=== PATIENT | male | born 1955 | race Native Hawaiian/Other Pacific Islander ===

== ENCOUNTER 2016-07-17 15:39 | Observation (INO) | payer OTHER ==
[~2016-07-17] VITALS: Ht 182.9 cm; Wt 93.6 kg
[~2016-07-17 15:39] MED LIST: AMLO2.5T PO; GLIP10TA55 PO; HUMULIN N1 ML SC; HUMULIN R1 M1 SC; LISI20TA11 PO; TAMS0.4C PO; ZESTRIL30 MG PO
[2016-07-17 16:00] VITALS: BP 122/60; TEMP 98.3
[2016-07-17 17:10] LABS: PLATELET COUNT 268 K/uL (142-355)
[2016-07-17 17:24] LABS: SODIUM 128 mmol/L (136-145)
--- NOTE | 2016-07-17 17:30 | NUR ---
NOTIFIED DR HAMMER OF CRITICAL LAB BLOOD GLUCOSE 444. NO NEW ORDERS GIVEN.
[2016-07-17 17:58] VITALS: BP 122/60; TEMP 98.3; Ht 182.9 cm; Wt 93.6 kg
[2016-07-17] MEDS ORDERED: LEVEMIR SC (19:07)
[2016-07-17 20:00] VITALS: BP 174/72; TEMP 97.5
[2016-07-18 00:19] VITALS: BP 133/76; TEMP 97.9
[2016-07-18 04:00] VITALS: BP 157/51; TEMP 98.8
[2016-07-18 08:00] VITALS: BP 166/73; TEMP 98
[2016-07-18 12:11] VITALS: BP 142/66; TEMP 98.5
[2016-07-18 16:00] VITALS: BP 147/66; TEMP 98.3
== END 2016-07-18 17:52 | disposition home or self-care (01) ==
LOC: MED/SURG 15:39
PROVIDERS: ADMIT Family Medicine
DX: D69.42 Congenital and hereditary thrombocytopenia purpura (principal); I10 Essential (primary) hypertension; E13.9 Other specified diabetes mellitus without complications; R53.83 Other fatigue; M25.551 Pain in right hip; E86.0 Dehydration
CPT/HCPCS: 36415; 36591; 80053; 81000; 82948; 85027; 87077; 87086; 87088; 87186; 96360; 96361; 96365; 96372; 99220; G0378; G0379; J1815

== ENCOUNTER 2017-09-21 13:59 | Outpatient (CLI) | payer OTHER ==
[~2017-09-21 13:59] MED LIST changes: +LEVEMIR SC
== END 2017-09-21 21:17 | disposition home or self-care (01) ==
LOC: MRI 13:59
DX: M54.2 Cervicalgia (principal)

== ENCOUNTER 2019-08-18 16:42 | Outpatient (CLI) | payer OTHER ==
[2019-08-18 17:19] LABS: SODIUM 138 mmol/L (136-145)
== END 2019-08-18 21:54 | disposition home or self-care (01) ==
LOC: RAD 16:42
PROVIDERS: Nurse Practitioner Family
DX: R07.9 Chest pain, unspecified (principal)
CPT/HCPCS: 36415; 80053; 82550; 82553; 84484

== ENCOUNTER 2019-11-21 18:30 | Inpatient (IN) | payer OTHER ==
[~2019-11-21] VITALS: Ht 182.9 cm; Wt 90.0 kg
[2019-11-21 20:34] LABS: PLATELET COUNT 256 K/uL (142-355)
[2019-11-21 20:49] LABS: POTASSIUM 3.9 mmol/L (3.6-5.2); SODIUM 134 mmol/L (136-145)
[2019-11-22] VITALS: BP 197/82; TEMP 98.1
[2019-11-22 04:00] VITALS: BP 182/78; TEMP 98.6
[2019-11-22] MEDS ORDERED: KETOROLAC10 MG PO (05:56)
[2019-11-22] MEDS ORDERED: GLIP10TA55 PO (05:57)
[2019-11-22] MEDS ORDERED: ULTRACET1 TAB PO (05:57)
[2019-11-22] MEDS ORDERED: AMLODIPINE BESYLATE PO (05:58)
[2019-11-22] MEDS ORDERED: LISI20TA11 PO (05:59)
[2019-11-22] MEDS ORDERED: ZANAFLEX2 MG PO (06:00)
[2019-11-22] MEDS ORDERED: HUMULIN N100 UNIT/1 SC (06:01)
[2019-11-22 08:00] VITALS: BP 194/78; TEMP 98.8
[2019-11-22 10:29] LABS: PLATELET COUNT 228 K/uL (142-355)
[2019-11-22 10:48] LABS: POTASSIUM 4.1 mmol/L (3.6-5.2)
[2019-11-22 12:00] VITALS: BP 117/78; TEMP 98.1
[2019-11-22 16:00] VITALS: BP 190/80; TEMP 98.2
[2019-11-22 20:00] VITALS: BP 210/78; TEMP 98.6
[2019-11-23] VITALS (7 sets, daily range): BP systolic 161–186; BP diastolic 61–75; TEMP 97.9–99.1
[2019-11-23 05:26] LABS: PLATELET COUNT 241 K/uL (142-355)
[2019-11-23 05:59] LABS: POTASSIUM 3.4 mmol/L (3.6-5.2)
[2019-11-24 04:00] VITALS: BP 161/69; TEMP 98.7
[2019-11-24 05:46] LABS: PLATELET COUNT 233 K/uL (142-355)
[2019-11-24 06:02] LABS: POTASSIUM 3.6 mmol/L (3.6-5.2)
[2019-11-24 08:00] VITALS: BP 186/80; TEMP 98.4
[2019-11-24 12:00] VITALS: BP 171/70; TEMP 98.3
[2019-11-24 16:00] VITALS: BP 176/69; TEMP 98.3
[2019-11-24 20:00] VITALS: BP 176/84; TEMP 98.7
[2019-11-25] VITALS: BP 157/61; TEMP 99.1
[2019-11-25 04:00] VITALS: BP 154/68; TEMP 98.9
[2019-11-25 05:40] LABS: PLATELET COUNT 209 K/uL (142-355)
[2019-11-25 06:05] LABS: POTASSIUM 3.7 mmol/L (3.6-5.2)
[2019-11-25 08:00] VITALS: BP 168/70; TEMP 98
[2019-11-25 12:00] VITALS: BP 181/66; TEMP 98.2
[2019-11-25 16:00] VITALS: BP 178/76; TEMP 98.6
== END 2019-11-25 19:00 | disposition home or self-care (01) | DRG 690 ==
LOC: MED/SURG 18:30
PROVIDERS: ADMIT Family Medicine
DX: N10 Acute pyelonephritis (principal); K56.7 Ileus, unspecified; I50.40 Unspecified combined systolic (congestive) and diastolic (congestive) heart failure; F10.10 Alcohol abuse, uncomplicated; E86.0 Dehydration; E87.8 Other disorders of electrolyte and fluid balance, not elsewhere classified; N28.9 Disorder of kidney and ureter, unspecified; R10.9 Unspecified abdominal pain; N40.0 Benign prostatic hyperplasia without lower urinary tract symptoms; E11.65 Type 2 diabetes mellitus with hyperglycemia
CPT/HCPCS: 36415; 80053; 81000; 82550; 82947; 83735; 84100; 84153; 84484; 85027; 87040; 87086; 87088; J1815; J1885; J2270; J2543; J3475; J7060; Q9963

== ENCOUNTER 2020-09-27 11:17 | Outpatient (CLI) | payer OTHER ==
[~2020-09-27 11:17] MED LIST changes: +AMLODIPINE BESYLATE PO; +HUMULIN N100 UNIT/1 SC; +KETOROLAC10 MG PO; +ULTRACET1 TAB PO; +ZANAFLEX2 MG PO
== END 2020-09-27 19:37 | disposition home or self-care (01) ==
LOC: CT 11:17
PROVIDERS: ATTEND Nurse Practitioner Family
DX: K40.90 Unilateral inguinal hernia, without obstruction or gangrene, not specified as recurrent (principal)
CPT/HCPCS: 36415; 82565; 84520; Q9963

== ENCOUNTER 2020-10-19 13:38 | Outpatient (CLI) | payer OTHER | END 2020-10-19 19:05 | disposition home or self-care (01) | LOC: MRI 13:38 | PROVIDERS: ATTEND Internal Medicine Gastroenterology | DX: R10.84 Generalized abdominal pain (principal); R93.5 Abnormal findings on diagnostic imaging of other abdominal regions, including retroperitoneum | CPT/HCPCS: A9576 ==

== ENCOUNTER 2021-09-18 08:24 | Outpatient (CLI) | payer OTHER | END 2021-09-18 19:21 | disposition home or self-care (01) | LOC: LABW 08:24 | PROVIDERS: ATTEND Nurse Practitioner Family | DX: R80.8 Other proteinuria (principal) | CPT/HCPCS: 84156 ==

== ENCOUNTER 2021-10-01 09:03 | Outpatient (CLI) | payer OTHER | END 2021-10-01 18:57 | disposition home or self-care (01) | LOC: CT 09:03 → US 09:30 → CT 18:57 | PROVIDERS: ATTEND Nurse Practitioner Family | DX: R80.8 Other proteinuria (principal); Z87.891 Personal history of nicotine dependence; Z09 Encounter for follow-up examination after completed treatment for conditions other than malignant neoplasm ==

== ENCOUNTER 2021-12-29 23:17 | Emergency (ER) | payer OTHER ==
[~2021-12-29] VITALS: Ht 182.9 cm; Wt 88.0 kg
[2021-12-29 23:17] VITALS: TEMP 98.8
[~2021-12-29 23:17] MED LIST changes: +ASPIRIN 8181 MG PO; +COZAAR100 MG PO; +FARXIGA10 MG PO; +HUMULIN R100 UNIT/M SC; +HYDR25TA57 PO; +HYDRALAZINE10 MG PO; +HYDRALAZINE25 MG PO; +INSUINJ32 SC; +LOSA50TA PO; +MOUNJARO SC; +NORVASC 5MG TAB PO; +ONDA4TAB3 PO; +SIMV10TA PO
[2021-12-30 01:01] LABS: POTASSIUM 4.2 mmol/L (3.6-5.2)
[2021-12-30 01:03] LABS: PLATELET COUNT 193 K/uL (142-355)
[2021-12-30 01:09] LABS: PARTIAL THROMBOPLASTIN TIME 25.4 SECONDS (24.5-33.6)
[2021-12-30 03:29] VITALS: BP 186/74
== END 2021-12-30 03:30 | disposition home or self-care (01) ==
LOC: ED 23:17
PROVIDERS: Family Medicine
DX: I10 Essential (primary) hypertension (principal); R51.9 Headache, unspecified; N28.9 Disorder of kidney and ureter, unspecified; E16.1 Other hypoglycemia
CPT/HCPCS: 36415; 80053; 80320; 82550; 83880; 84484; 85027; 85379; 85610; 85730; 93005; 96374; 99284; J1940

== ENCOUNTER 2022-01-01 14:48 | Emergency (ER) | payer OTHER ==
[~2022-01-01] VITALS: Ht 182.9 cm; Wt 85.3 kg
[2022-01-01 14:50] VITALS: TEMP 99.4
[2022-01-01 16:00] VITALS: BP 148/78
== END 2022-01-01 16:10 | disposition home or self-care (01) ==
LOC: ED 14:48
DX: J20.9 Acute bronchitis, unspecified (principal)
CPT/HCPCS: 87502; 99283

== ENCOUNTER 2022-01-06 15:08 | Inpatient (IN) | payer OTHER ==
[~2022-01-06] VITALS: Ht 182.9 cm; Wt 83.0 kg
[2022-01-06 15:38] LABS: PLATELET COUNT 200 K/uL (142-355)
[2022-01-06 15:48] VITALS: BP 201/78; TEMP 99.9; Ht 182.9 cm; Wt 83.0 kg
[2022-01-06 15:48] LABS: POTASSIUM 4.6 mmol/L (3.6-5.2)
[2022-01-06 18:17] VITALS: BP 201/78; TEMP 99.9
[2022-01-06 20:35] VITALS: BP 195/74; TEMP 99.9
[2022-01-07 00:08] VITALS: BP 188/60; TEMP 99.6
[2022-01-07 02:17] VITALS: BP 170/65
[2022-01-07 06:17] VITALS: BP 180/87; TEMP 98.3
[2022-01-07 08:00] VITALS: BP 190/85; TEMP 98.5
[2022-01-07] MEDS ORDERED: HUMULIN R100 UNIT/M IM (12:40)
[2022-01-07] MEDS ORDERED: AMLODIPINE BESYLATE PO (12:41)
[2022-01-07] MEDS ORDERED: HYDRALAZINE50 MG PO (12:42)
[2022-01-07 16:00] VITALS: BP 188/80; BP 198/85; TEMP 98; TEMP 99.1
[2022-01-08 01:04] VITALS: BP 167/71; TEMP 98.7
[2022-01-08 04:00] VITALS: BP 190/87; TEMP 98.5
[2022-01-08 05:03] LABS: PLATELET COUNT 220 K/uL (142-355)
[2022-01-08 05:20] LABS: POTASSIUM 4.7 mmol/L (3.6-5.2)
[2022-01-08] MEDS ORDERED: PAXLOVID 20 X 11 TAB PO (10:13)
[2022-01-08] MEDS ORDERED: DECADRON6 MG PO (10:13)
[2022-01-08] MEDS ORDERED: CEFD300C2 PO (10:14)
[2022-01-08] MEDS ORDERED: AZIT250T3 PO (10:15)
[2022-01-08 10:17] VITALS: BP 189/91; TEMP 98.7
[2022-01-08] MEDS ORDERED: HYDRALAZINE50 MG PO (10:32)
== END 2022-01-08 12:45 | disposition home or self-care (01) | DRG 190 ==
LOC: MED/SURG 15:08
PROVIDERS: ADMIT Internal Medicine; ATTEND Internal Medicine
DX: J44.1 Chronic obstructive pulmonary disease with (acute) exacerbation (principal); U07.1 COVID-19; E78.49 Other hyperlipidemia; E11.22 Type 2 diabetes mellitus with diabetic chronic kidney disease; E11.65 Type 2 diabetes mellitus with hyperglycemia; I12.9 Hypertensive chronic kidney disease with stage 1 through stage 4 chronic kidney disease, or unspecified chronic kidney disease; N18.32 Chronic kidney disease, stage 3b
CPT/HCPCS: 36415; 36600; 80053; 81002; 82805; 82948; 83880; 84134; 84145; 84484; 85027; 87635; 93005; 94760; 96360; 96361; 96375; J0248; J0456; J0696; J1650; J1815; J2930; U0003

== ENCOUNTER 2022-01-14 11:29 | Outpatient (CLI) | payer OTHER ==
[~2022-01-14 11:29] MED LIST changes: +AZIT250T3 PO; +CEFD300C2 PO; +DECADRON6 MG PO; +HUMULIN R100 UNIT/M IM; +HYDRALAZINE50 MG PO; +PAXLOVID 20 X 11 TAB PO
[2022-01-14 11:49] LABS: PLATELET COUNT 345 K/uL (142-355)
[2022-01-14 12:21] LABS: POTASSIUM 3.9 mmol/L (3.6-5.2)
== END 2022-01-14 19:39 | disposition home or self-care (01) ==
LOC: LABW 11:29
PROVIDERS: ATTEND Nurse Practitioner Family
DX: R60.0 Localized edema (principal)
CPT/HCPCS: 36415; 80053; 83880; 85027

== ENCOUNTER 2022-01-16 13:09 | Emergency (ER) | payer OTHER ==
[~2022-01-16] VITALS: Ht 182.9 cm; Wt 83.0 kg
[2022-01-16 13:20] VITALS: TEMP 98
[2022-01-16 13:53] LABS: PLATELET COUNT 288 K/uL (142-355)
[2022-01-16 13:57] LABS: POTASSIUM 4.4 mmol/L (3.6-5.2)
[2022-01-16 16:20] VITALS: BP 151/74
== END 2022-01-16 16:45 | disposition short-term general hospital (02) ==
LOC: ED 13:09
PROVIDERS: Emergency Medicine
DX: I50.9 Heart failure, unspecified (principal); R60.0 Localized edema; I31.9 Disease of pericardium, unspecified; R94.31 Abnormal electrocardiogram [ECG] [EKG]; E11.9 Type 2 diabetes mellitus without complications; Z79.4 Long term (current) use of insulin
CPT/HCPCS: 36415; 80053; 83880; 84484; 85027; 93005; 96374; 99284; J1940

== ENCOUNTER 2022-01-24 15:03 | Outpatient (CLI) | payer OTHER, MEDICARE ==
[2022-01-24 15:29] LABS: PLATELET COUNT 246 K/uL (142-355)
[2022-01-24 15:52] LABS: POTASSIUM 4.1 mmol/L (3.6-5.2)
== END 2022-01-24 18:59 | disposition home or self-care (01) ==
LOC: US 15:03 → LABW 15:03
PROVIDERS: ATTEND Student in an Organized Health Care Education/Training Program
DX: N28.89 Other specified disorders of kidney and ureter (principal); N17.9 Acute kidney failure, unspecified; D63.1 Anemia in chronic kidney disease; N18.9 Chronic kidney disease, unspecified; E79.0 Hyperuricemia without signs of inflammatory arthritis and tophaceous disease; R80.8 Other proteinuria; D50.8 Other iron deficiency anemias; E78.2 Mixed hyperlipidemia; E55.9 Vitamin D deficiency, unspecified; R94.6 Abnormal results of thyroid function studies; E11.65 Type 2 diabetes mellitus with hyperglycemia; I12.9 Hypertensive chronic kidney disease with stage 1 through stage 4 chronic kidney disease, or unspecified chronic kidney disease
CPT/HCPCS: 36415; 80053; 80074; 81002; 82306; 82570; 83036; 83735; 83970; 84100; 84156; 84165; 84550; 85027; 86037; 86160; 86592; 86701; 86702; 87389

== ENCOUNTER 2022-01-27 09:08 | Outpatient (CLI) | payer OTHER, MEDICARE | END 2022-01-27 18:55 | disposition home or self-care (01) | LOC: US 09:08 | PROVIDERS: ATTEND Student in an Organized Health Care Education/Training Program | DX: N28.89 Other specified disorders of kidney and ureter (principal); N17.9 Acute kidney failure, unspecified; D63.1 Anemia in chronic kidney disease; N18.9 Chronic kidney disease, unspecified; E11.9 Type 2 diabetes mellitus without complications; E79.0 Hyperuricemia without signs of inflammatory arthritis and tophaceous disease; R80.8 Other proteinuria; I12.9 Hypertensive chronic kidney disease with stage 1 through stage 4 chronic kidney disease, or unspecified chronic kidney disease ==